=== PATIENT | male | born 1950 | race Caucasian/White ===

== ENCOUNTER → 2018-09-30 | Outpatient (CLI) | payer OTHER ==
[~2018-09-30] MED LIST: ADULT LOW DOSE81 MG PO; AMBIEN 5 MG TABL5 M1 PO; FLEXERIL PO; NABUMETONE 750750 M1 PO; NAPROSYN125 MG/5 M PO; NORCO 5-325 TA1 EACH PO; PERCOCET 10-321 EACH PO; VIAGRA50 MG PO
== END ==
LOC: ULTRA 07:28
DX: R05 Cough (principal); M47.814 Spondylosis without myelopathy or radiculopathy, thoracic region; M41.84 Other forms of scoliosis, thoracic region; G45.9 Transient cerebral ischemic attack, unspecified; I73.9 Peripheral vascular disease, unspecified

== ENCOUNTER → 2018-10-06 | Outpatient (CLI) | payer OTHER | LOC: MRI 07:21 | DX: H46.9 Unspecified optic neuritis (principal); R90.82 White matter disease, unspecified; J32.0 Chronic maxillary sinusitis; Z88.8 Allergy status to other drugs, medicaments and biological substances ==